=== PATIENT | male | born 1975 | race Caucasian/White ===

== ENCOUNTER 2021-11-05 18:49 | Emergency (ER) | payer MEDICAID, OTHER ==
[~2021-11-05] VITALS: Ht 175.3 cm; Wt 75.0 kg
[2021-11-05 19:44] VITALS: BP 112/66
--- NOTE | 2021-11-05 23:43 | NUR ---
pt brought to room after 4.[address] Longo of their wait and his discomfort . Educated patient about levels of care and priorities due to acuity and reassured patient he will be seen and treated shortly. oriented patient to room and reassessed vs
[2021-11-05] MEDS ORDERED: ketorolac trometh inj. 60 MG/2 ML VIAL IM ONE (23:45)
[2021-11-05] MEDS ORDERED: cyclobenzaprine 10mg tablet PO ONE (23:45)
[2021-11-05] MEDS ORDERED: acetaminophen 325mg tablet PO ONE (23:45)
[2021-11-05] MEDS ORDERED: CYCL-1 PO (23:48)
[2021-11-05] MEDS ORDERED: MELO-100 PO (23:48)
== END 2021-11-06 00:29 | disposition home or self-care (01) ==
LOC: ER 18:50
DX: S40.011A Contusion of right shoulder, initial encounter (principal); X50.9XXA Other and unspecified overexertion or strenuous movements or postures, initial encounter; Y93.89 Activity, other specified; Y92.89 Other specified places as the place of occurrence of the external cause; Y99.8 Other external cause status
CPT/HCPCS: 73060; 73080; 96372; 99284; J1885